=== PATIENT | female | born 1995 | race Two or more races ===

== ENCOUNTER 2017-08-06 04:37 | Emergency (ER) | payer OTHER ==
--- NOTE | 2017-08-06 09:00 | RAD ---
LEFT KNEE 2 VIEWS: HISTORY: Trauma. COMPARISON: None. FINDINGS: The exam was limited due to patient rotation and technique. Possible lateral subluxation of the mckeon lla. IMPRESSION: Lateral subluxation of the patella. POS: SINCERE
--- NOTE | 2017-08-06 09:05 | RAD ---
LEFT KNEE 3 VIEWS: HISTORY: Post reduction. COMPARISON: Radiograph same day. FINDINGS: Improved alignment of the patellofemoral compartment. IMPRESSION: Improved patellofemoral compartment alignment. POS: SINCERE
== END 2017-08-06 05:08 | disposition home or self-care (01) ==
LOC: ERS 04:37
DX: S83.015A Lateral dislocation of left patella, initial encounter (principal); D57.00 Hb-SS disease with crisis, unspecified; Z87.891 Personal history of nicotine dependence; W08.XXXA Fall from other furniture, initial encounter
CPT/HCPCS: 27560; 99152; 99153